=== PATIENT | female | born 1965 | race Caucasian/White ===

== ENCOUNTER 2025-03-17 05:45 | Day surgery (SDC) | payer BC ==
[~2025-03-17] VITALS: Ht 167.6 cm; Wt 81.0 kg
--- NOTE | ~2025-03-17 | OR ---
[address] [address] Draft DATE OF OPERATION: 03/17/2025 SURGEON: Lena Gonsales DO PREOPERATIVE DIAGNOSES: 1. BETTE 2. 2. Tobacco use. 3. Condyloma. POSTOPERATIVE DIAGNOSES: 1. BETTE 2. 2. Tobacco use. 3. Condyloma. PROCEDURE PERFORMED: Cold knife conization of the cervix. ANESTHESIA: MAC. ESTIMATED BLOOD LOSS: 25 mL. SPECIMEN: 1. Conization of the cervix marked at 12 o'clock with a silk suture. 2. Endocervical curettage. COMPLICATIONS: None. DRAINS: None. INDICATIONS: Ms. Carter is a very pleasant 59-year-old postmenopausal female, who presented with abnormal Pap smear. Colposcopy was performed that demonstrated BETTE 2 and the patient was consented for excisional procedure. Reviewed LEEP versus cone and recommended conization given the patient's age, risk factors, etc. Risks, benefits, and alternatives were discussed in detail with the patient. The patient understands and wishes to proceed with the procedure. PATIENT NAME: KACIE CARTER OPERATIVE REPORT DATE OF : 69 REPORT #: [id number] PHYSICIAN: LENA GONSALES) PCP: WU HALE MD REPORT IS CONFIDENTIAL AND NOT TO BE RELEASED WITHOUT AUTHORIZATION [address] [address] Draft TECHNIQUE: The patient was taken to the OR. A time-out was performed to confirm correct patient and correct procedure. MAC anesthesia was adequately established. The patient was prepped and draped in the dorsal lithotomy position with her feet in Yellofin stirrups. ICPs were on and running and no preoperative antibiotics were indicated. The bladder was drained. A weighted speculum was placed in the vagina and the anterior lip of the cervix was grasped with a single-tooth tenaculum. The cervix had Lugol solution placed on it and abnormalities noted were consistent with previous colposcopy. A stay suture of 2-0 chromic was placed at 3 o'clock and 9 o'clock. A Hegar dilator was then used to retract the cervical canal to the internal os. An 11 blade was used to circumscribe the squamocolumnar junction to a depth of approximately 1-2 mm. The 11 blade was then angled towards the internal os and the cone biopsy was completed. The biopsy was then marked at 12 o'clock and sent to pathology for further evaluation. Endocervical curettage was performed with a Kevorkian curette and sent to pathology for further evaluation. Minimal bleeding was noted. The bed of the cone biopsy was then made hemostatic with ball-tipped cautery and excellent hemostasis was appreciated. Monsel solution was applied and Surgicel was placed into the bed of the cervical biopsy. Stay sutures were then plicated in the midline. Hemostasis was appreciated. The patient was then taken to PACU in good and stable condition. Of note, the patient had a condyloma of the left labia that can be excised in the office at a future date. Sponge, needle, and instrument count was correct x2 at the end of the procedure. Lena Gonsales DO JGeovanyW/MODL /[id number] Copies: ~ PATIENT NAME: KACIE CARTER KARTIK OPERATIVE REPORT DATE OF : 69 REPORT #: [id number] PHYSICIAN: LENA GONSALES DO (JD) PCP: WU HALE MD REPORT IS CONFIDENTIAL AND NOT TO BE RELEASED WITHOUT AUTHORIZATION
[~2025-03-17 05:45] MED LIST: LACTATED RINGER'S 1,000 ML IV SCH; LEVOTHYROXINE100 MC2 PO; LIPITOR10 MG PO
[2025-03-17 06:00] VITALS: BP 121/76
[2025-03-17] MEDS ORDERED: IBLOOD GLUCOSE TEST STRIP 1 EA TEST VI PRN ×2 (07:00→08:00)
[2025-03-17] MEDS ORDERED: LIDOCAINE HCL 1% 5 ML SDV INJ ONE (07:00)
[2025-03-17] MEDS ORDERED: LIDOCAINE HCL 2% 5 ML SDV ONE (07:13)
[2025-03-17] MEDS ORDERED: ACETAMINOPHEN 1,000 MG/100 ML VIAL ONE (07:13)
[2025-03-17] MEDS ORDERED: fentaNYL citrate 100 MCG/2 ML VIAL ONE (07:14)
[2025-03-17] MEDS ORDERED: NALOXONE HCL 0.4 MG SYR IV PRN ×2 (08:00→08:30)
[2025-03-17] MEDS ORDERED: PROCHLORPERAZINE EDISYLATE 10 MG/2 ML VIAL IV PRN ×2 (08:00→08:30)
[2025-03-17] MEDS ORDERED: HYDROmorphone HCL 1 MG/ML SYR IV PRN (08:00)
[2025-03-17] MEDS ORDERED: fentaNYL citrate 50 MCG/ML SDV IV PRN (08:00)
--- NOTE | 2025-03-17 08:29 | NUR ---
03/17/25 0829 Nancy Abbasi 0815: PT BROUGHT TO PACU VIA STRETCHER. PT ON 6L VIA MASK. PT REACTIVE TO VERBAL STIMULI AT THIS TIME. 0820: PT TITRATED TO RA AT THIS TIME. PT DENIES NAUSEA OR VOMITING AT THIS TIME. 0828: PT REMAINS ON RA AT THIS TIME. PT CONTINUES TO DENY NAUSEA, PAIN OR VOMITING AT THIS TIME.
[2025-03-17] MEDS ORDERED: HYDROCODONE/ACETA 5/325 TAB PO PRN (08:30)
[2025-03-17] MEDS ORDERED: SIMETHICONE 80 MG CHEW PO PRN (08:30)
[2025-03-17] MEDS ORDERED: FAMOTIDINE 20 MG/ 2 ML VIAL IV PRN (08:30)
[2025-03-17] MEDS ORDERED: MAGNESIUM HYDROXIDE/AL HYDROX 30 ML CUP PO PRN (08:30)
[2025-03-17 08:45] VITALS: BP 113/72
[2025-03-17] MEDS ORDERED: SIMETHICONE 80 MG CHEW PO SCH (09:00)
[2025-03-17] MEDS ORDERED: IBUPROFEN 800 MG TAB PO SCH (14:00)
--- NOTE | 2025-03-22 16:22 | PATH ---
[facility] [address] [place], [place] [address] Signed SPECIMEN(S): A CERVICAL CONE, 12 O'CLOCK SPECIMEN(S): B ENDOCERVICAL CURETTINGS SPECIMEN SOURCE: A. CERVICAL CONE, 12 O'CLOCK B. ENDOCERVICAL CURETTINGS CLINICAL HISTORY: BETTE-3 FINAL PATHOLOGIC DIAGNOSIS: A. 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 - No invasion identified. - Margins of resection are free of dysplasia. - Chronic cervicitis. B. Endocervical curettings (cellblock: - Hypocellular specimen, primarily blood, with extremely rare fragments of benign endocervical mucosa. - No dysplasia identified in a limited specimen. COMMENT: Specimen B Insufficient tissue was received for routine histologic processing. A cellblock preparation is performed. NA/JLP MICROSCOPIC EXAMINATION: Histologic sections of all submitted blocks are examined by light microscopy. These findings, together with the gross examination, support the pathologic diagnosis. Histologic sections of all submitted blocks are examined by light microscopy. These findings, together with the gross examination, support the pathologic diagnosis. GROSS DESCRIPTION: A. The specimen, labeled and designated "Raul cervical cone," is received in formalin and consists of cone-shaped tissue fragment that measure 2.1 x 1.6 x 0.9 cm. The ectocervix is pink-nunez, focally congested. The resection margin is inked. Specimen is oriented with a PATIENT NAME: KACIE FAGAN PATHOLOGY DATE OF : 69 REPORT #: [id number] PHYSICIAN: GIANLUCA ROBERTSON PCP: WU HALE MD REPORT IS CONFIDENTIAL AND NOT TO BE RELEASED WITHOUT AUTHORIZATION [facility] [address] [place], [place] [address] Signed stitch as a 12:00. Entirely submitted Cassette Summary: (A1) 12-3 o'clock (A2) 3-6 o'clock (A3) 6-9 o'clock (A4) 9-12 o'clock B. The specimen, labeled and designated "Raul, endocervical curettings," is received in formalin and consists of scanty tissue fragments that most likely cannot survive processing. Specimen is send to cytology for cellblock prep. JS (under the direct supervision of a pathologist) The Gross Description was prepared using a voice recognition system. The report was reviewed for accuracy; however, sound-alike word errors, addition and/or deletions may occur. If there is any question about this report, please contact Client Services. ADDITIONAL NOTES: Immunohistochemical and/or in situ hybridization studies if performed in this case included appropriate positive controls that reacted as expected. This test was developed and its performance characteristics determined by [facility]. It has not been cleared or approved by the U.S. Food and Drug Administration. The FDA has determined that such clearance or approval is not necessary. This test is used for clinical purposes. It should not be regarded as investigational or for research. [facility] is certified under the Clinical Laboratory Improvement Amendments of 1988 (CLIA) as qualified to perform high complexity clinical laboratory testing. PERFORMING LABORATORY: Technical component was performed by [facility], [address] [place] [id number] (CLIA# [id number]). Professional interpretation was performed by [facility], [address] [place] [id number] (CLIA#: [id number]). Diagnostician: Sanju Lopez MD Pathologist Electronically Signed 03/22/2025 Copies: PATIENT NAME: KACIE FAGAN PATHOLOGY DATE OF : 69 REPORT #: [id number] PHYSICIAN: GIANLUCA PATHOLOGY PCP: WU HALE MD REPORT IS CONFIDENTIAL AND NOT TO BE RELEASED WITHOUT AUTHORIZATION [address] [employer] [place], [place] [address] Signed ~ PATIENT NAME: KACIE FAGAN PATHOLOGY DATE OF : 69 REPORT #: [id number] PHYSICIAN: GIANLUCA PATHOLOGY PCP: WU HALE MD REPORT IS CONFIDENTIAL AND NOT TO BE RELEASED WITHOUT AUTHORIZATION
== END 2025-03-17 08:55 | disposition home or self-care (01) ==
LOC: DS 05:45 → OPS 05:45 → DS 07:30 → OPS 07:30 → DS 09:00
PROVIDERS: ATTEND Obstetrics & Gynecology
PROC: 0U5C7ZZ Destruction of Cervix, Via Natural or Artificial Opening (ICD-10-PCS; principal; 2025-03-17 07:30)
DX: D06.0 Carcinoma in situ of endocervix (principal); A63.0 Anogenital (venereal) warts; N72 Inflammatory disease of cervix uteri; E03.9 Hypothyroidism, unspecified; E78.00 Pure hypercholesterolemia, unspecified; Z79.890 Hormone replacement therapy; Z79.899 Other long term (current) drug therapy; Z88.5 Allergy status to narcotic agent
CPT/HCPCS: 00940; J0131; J2003; J2405; J2704; J3010; J7121